=== PATIENT | male | born 1965 | race Two or more races ===

== ENCOUNTER 2018-11-18 19:29 | Emergency (ER) | payer SELFPAY ==
[~2018-11-18] VITALS: Ht 182.9 cm; Wt 83.9 kg
[2018-11-18 19:40] VITALS: BP 136/65
== END 2018-11-19 00:33 | disposition left against medical advice (07) ==
LOC: ER 19:33
DX: R10.9 Unspecified abdominal pain (principal); Z53.21 Procedure and treatment not carried out due to patient leaving prior to being seen by health care provider
CPT/HCPCS: 93005

== ENCOUNTER 2018-11-19 06:45 | Inpatient (IN) | payer SELFPAY ==
[~2018-11-19] VITALS: Ht 182.9 cm; Wt 78.8 kg
[2018-11-19] MEDS ORDERED: SODIUM CHLORIDE 0.9% 1,000 ML IVB ONE (07:40)
[2018-11-19] MEDS ORDERED: MORPHINE SULFATE 4 MG/ML SYR/VIAL IV ONE (07:45)
[2018-11-19] MEDS ORDERED: ONDANSETRON HCL 4 MG/2 ML VIAL IV ONE (07:45)
[2018-11-19 08:25] LABS: Alanine Aminotransferase 24 U/L (16-61); Albumin 3.6 g/dL (3.4-5.0); Anion Gap 9 (5-15); Aspartate Aminotransferase 28 U/L (15-37); BUN/Creatinine Ratio 16.5; Blood Urea Nitrogen 21 mg/dL (7-18); Calcium 8.4 mg/dL (8.5-10.1); Carbon Dioxide 23 mmol/L (21-32); Chloride 110 mmol/L (98-107); GFR African American 76 mL/min; GFR Non-African American 63 mL/min; Glucose 122 mg/dL (74-106); Magnesium 2.3 mg/dL (1.6-2.6); Potassium 3.5 mmol/L (3.5-5.1); Sodium 142 mmol/L (136-145)
[2018-11-19 08:34] LABS: Alkaline Phosphatase 88 U/L (45-117); Lipase 80 U/L (73-393)
[2018-11-19 08:36] LABS: Basophils # (auto) 0 uL; Basophils % (auto) 0.3 % (0.0-2.0); Eosinophils # (auto) 0 uL; Eosinophils % (auto) 0.4 % (0.0-7.0); Hematocrit 45.6 % (41.0-53.0); Hemoglobin 15.3 g/dL (13.5-17.5); Lymphocytes # (auto) 1.3 uL; Lymphocytes % (auto) 10.7 % (10.0-50.0); Mean Corpuscular Hemoglobin 30.2 pg (28.0-32.0); Mean Corpuscular Hgb Conc. 33.5 g/dL (32.0-36.0); Mean Corpuscular Volume 90.2 fL (80.0-100.0); Monocytes # (auto) 0.9 uL; Monocytes % (auto) 7.1 % (0.0-12.0); Neutrophils # (auto) 10.3 uL; Neutrophils % (auto) 81.5 % (37.0-80.0); Nucleated Red Blood Cells % 0.1 %; Platelet Count (auto) 295 10^3/uL (140-450); Red Blood Cells 5.05 10^6/uL (4.5-5.90); Red Cell Distribution Width 13.5 % (11.8-14.3); White Blood Cell 12.6 10^3/uL (4.4-10.8)
[2018-11-19] MEDS ORDERED: KETOROLAC TROMETH 15 mg/ml 1ML VL IV ONE (08:45)
[2018-11-19] MEDS ORDERED: ACETAMINOPHEN 500 MG TAB PO PRN (10:15)
[2018-11-19] MEDS ORDERED: ONDANSETRON HCL 4 MG/2 ML VIAL IV PRN (10:15)
[2018-11-19] MEDS ORDERED: POLYETHYLENE GLYCOL 17 GM PWDR PO ONE (10:15)
[2018-11-19] MEDS ORDERED: NITROGLYCERIN 0.4 MG SL TAB SL PRN (10:15)
[2018-11-19] MEDS ORDERED: HYDROcodone-ACET 5/325MG TAB PO PRN (10:15)
[2018-11-19] MEDS ORDERED: MORPHINE SULF INJ 2 MG/ML SYRINGE 1ML IV PRN ×2 (10:15)
[2018-11-19] MEDS: cefTRIAXone 1GM/50ML D5W 50 ML IV SCH (10:47)
[2018-11-19] MEDS: FOLIC ACID 1 MG, MULTIPLE VITAMIN 10 ML, MAGNESIUM SULF SDV 50% 8 MEQ, THIAMINE INJ 100... INJ SCH ×5 (11:16)
--- NOTE | 2018-11-19 11:40 | NUR ---
RECEIVED REPORT FROM ER, RN. AWAITING PT ARRIVAL.
[2018-11-19 12:13] VITALS: BP 125/76
--- NOTE | 2018-11-19 13:47 | NUR ---
ASSUMED CARE OF PATIENT Patient arrived to floor. Assumed care of patient, awake and alert. No S/S of distress/SOB. Pt denies any pain at this time. Instructed on POC and to call for assist PRN. Bed in lowest and locked position with side rails up x2 and call light within reach. Will continue to monitor for changes Q1hr and PRN. Addendum: 11/19/18 at 1351 by COLETTE YOO RN RN WRONG TIME. CORRECT TIME AT 1207
[2018-11-19 17:19] VITALS: BP 133/80
[2018-11-19] MEDS: TAMSULOSIN HYDROCHLORIDE 0.4 MG CAP PO SCH (18:05)
[2018-11-19 19:00] LABS: Urine Bacteria NONE SEEN /hpf (None Seen); Urine Blood TRACE /uL (Negative); Urine Mucus FEW (None Seen); Urine Specific Gravity 1.031 (1.001-1.035); Urine WBC 5 /hpf (0 - 3)
--- NOTE | 2018-11-19 19:30 | NUR ---
Opening Shift Note Assumed care of patient, awake and alert. No S/S of distress/SOB or pain. Insructed on POC and to callfor assist PRN, will continue to monitor for changes Q1hr and PRN. at bedside. Fall and safety precautions in place. Call light within reach.
[2018-11-19] MEDS: DOCUSATE SOD 100 MG CAP PO SCH (21:17)
[2018-11-19 23:19] VITALS: BP 136/61
[2018-11-20 05:28] VITALS: BP 131/63
--- NOTE | 2018-11-20 07:26 | NUR ---
Opening Shift Note Assumed care of patient, awake and alert. No S/S of distress/SOB. Pt denies any pain at this time. Instructed on POC and to call for assist PRN. Fall precaution measures in place. Bed in lowest and locked position with side rails upx2 and call light within reach. Will continue to monitor for changes Q1hr and PRN.
[2018-11-20 07:43] LABS: Basophils # (auto) 0 uL; Basophils % (auto) 0.3 % (0.0-2.0); Eosinophils # (auto) 0.1 uL; Hematocrit 43.2 % (41.0-53.0); Hemoglobin 14.7 g/dL (13.5-17.5); Lymphocytes # (auto) 1.9 uL; Lymphocytes % (auto) 18.9 % (10.0-50.0); Mean Corpuscular Hemoglobin 30.9 pg (28.0-32.0); Mean Corpuscular Volume 90.9 fL (80.0-100.0); Monocytes # (auto) 0.7 uL; Monocytes % (auto) 7.5 % (0.0-12.0); Neutrophils # (auto) 7.2 uL; Neutrophils % (auto) 72.3 % (37.0-80.0); Platelet Count (auto) 268 10^3/uL (140-450); Red Blood Cells 4.76 10^6/uL (4.5-5.90); Red Cell Distribution Width 13.3 % (11.8-14.3); White Blood Cell 9.9 10^3/uL (4.4-10.8)
[2018-11-20 08:03] LABS: Calcium 8.5 mg/dL (8.5-10.1); Potassium 3.6 mmol/L (3.5-5.1)
[2018-11-20 09:00] VITALS: BP 139/73
[2018-11-20] MEDS: DOCUSATE SOD 100 MG CAP PO SCH ×2 (09:44→21:10)
[2018-11-20] MEDS: cefTRIAXone 1GM/50ML D5W 50 ML IV SCH (09:44)
[2018-11-20] MEDS: FAMOTIDINE 20 MG TAB PO SCH (09:44)
[2018-11-20] MEDS: POLYETHYLENE GLYCOL 17 GM PWDR PO SCH (09:45)
[2018-11-20] MEDS: FOLIC ACID 1 MG, MULTIPLE VITAMIN 10 ML, MAGNESIUM SULF SDV 50% 8 MEQ, THIAMINE INJ 100... INJ SCH ×5 (12:49)
[2018-11-20 13:00] VITALS: BP 121/71
[2018-11-20 17:00] VITALS: BP 123/66
[2018-11-20] MEDS: TAMSULOSIN HYDROCHLORIDE 0.4 MG CAP PO SCH (18:25)
[2018-11-20 22:54] VITALS: BP 134/63
[2018-11-21 05:19] VITALS: BP 126/77
--- NOTE | 2018-11-21 07:35 | NUR ---
OPENING NOTE Assumed care of patient from NOC RNKaelyn. Patient resting in bed with eyes closed, even rise and fall of chest noted. No S/S of distress/SOB or pain. Bed in lowest, locked position with side rails up x2 and call light within reach . Will continue to monitor for changes Q1hr and PRN.
[2018-11-21 09:00] VITALS: BP 131/80
[2018-11-21] MEDS: DOCUSATE SOD 100 MG CAP PO SCH ×2 (09:48→21:31)
[2018-11-21] MEDS: cefTRIAXone 1GM/50ML D5W 50 ML IV SCH (09:48)
[2018-11-21] MEDS: POLYETHYLENE GLYCOL 17 GM PWDR PO SCH (09:49)
[2018-11-21] MEDS: FAMOTIDINE 20 MG TAB PO SCH (09:49)
--- NOTE | 2018-11-21 10:31 | NUR ---
OFF UNIT Patient ambulated off unit. AMA previously signed. No S/S of distress noted.
--- NOTE | 2018-11-21 10:55 | NUR ---
RETURN TO UNIT Patient returned to unit. No S/S of distress noted.
[2018-11-21] MEDS: FOLIC ACID 1 MG, MULTIPLE VITAMIN 10 ML, MAGNESIUM SULF SDV 50% 8 MEQ, THIAMINE INJ 100... INJ SCH ×5 (12:00)
[2018-11-21 13:00] VITALS: BP 132/75
--- NOTE | 2018-11-21 13:45 | NUR ---
OFF UNIT Patient ambulated off unit.
[2018-11-21 16:57] VITALS: BP 127/75
--- NOTE | 2018-11-21 17:13 | NUR ---
OFF UNIT Patient ambulated off unit
[2018-11-21] MEDS: TAMSULOSIN HYDROCHLORIDE 0.4 MG CAP PO SCH (18:18)
--- NOTE | 2018-11-21 19:22 | NUR ---
CLOSING NOTE Endorsed care of patient to NOC Kaelyn MORENO.
[2018-11-21 22:00] VITALS: BP 137/77
[2018-11-22 05:00] VITALS: BP 134/71
[2018-11-22 08:00] VITALS: BP 138/91
[2018-11-22] MEDS: cefTRIAXone 1GM/50ML D5W 50 ML IV SCH (09:26)
[2018-11-22] MEDS: DOCUSATE SOD 100 MG CAP PO SCH (09:27)
[2018-11-22] MEDS: POLYETHYLENE GLYCOL 17 GM PWDR PO SCH (09:27)
[2018-11-22] MEDS: FAMOTIDINE 20 MG TAB PO SCH (09:27)
[2018-11-22 10:54] LABS: BUN/Creatinine Ratio 15.2; Calcium 9.4 mg/dL (8.5-10.1); Potassium 4.2 mmol/L (3.5-5.1)
[2018-11-22 12:00] VITALS: BP 134/71
[2018-11-22] MEDS: FOLIC ACID 1 MG, MULTIPLE VITAMIN 10 ML, MAGNESIUM SULF SDV 50% 8 MEQ, THIAMINE INJ 100... INJ SCH ×5 (12:56)
[2018-11-22 13:54] VITALS: BP 134/71
--- NOTE | 2018-11-22 14:54 | NUR ---
DISCHARGE Discharge instructions given as ordered. Encouraged to establish and follow up with PMD as instructed. All questions and concerns addressed. Patient verbalized understanding. Medication reconciliation form completed and copy given to patient. IV removed with catheter intact and pressure dressing applied. Patient ambulated to vehicle with all personal belongings, accompanied by staff and family member. No distress noted at time of departure.
== END 2018-11-22 14:55 | disposition home or self-care (01) | DRG 694 ==
LOC: ER 06:45 → OVERFLOW 06:46 → EAST 12:09
PROVIDERS: ADMIT Internal Medicine; ATTEND Internal Medicine
DX: N13.2 Hydronephrosis with renal and ureteral calculous obstruction (principal); D72.829 Elevated white blood cell count, unspecified; F17.210 Nicotine dependence, cigarettes, uncomplicated; K57.90 Diverticulosis of intestine, part unspecified, without perforation or abscess without bleeding; K59.00 Constipation, unspecified; F10.10 Alcohol abuse, uncomplicated; Y90.9 Presence of alcohol in blood, level not specified
CPT/HCPCS: 36415; 71250; 74176; 80048; 80053; 81001; 83690; 83735; 84484; 85025; 87086; 93005; G0378; J0696; J2405

== ENCOUNTER 2020-06-10 21:01 | Emergency (ER) | payer MEDICAID, OTHER ==
[~2020-06-10] VITALS: Ht 182.9 cm; Wt 88.5 kg
[2020-06-10 22:30] LABS: Basophils # (auto) 0.1 10 ^3/uL (0-0.2); Eosinophils # (auto) 0.3 10 ^3/uL (0-0.8); Eosinophils % (auto) 4.7 % (0.0-7.0); Hematocrit 42.4 % (41.0-53.0); Hemoglobin 14.7 g/dL (13.5-17.5); Lymphocytes # (auto) 2.3 10 ^3/uL (0.4-5.4); Lymphocytes % (auto) 36.8 % (10.0-50.0); Mean Corpuscular Hemoglobin 31.5 pg (28.0-32.0); Mean Corpuscular Hgb Conc. 34.8 g/dL (32.0-36.0); Mean Corpuscular Volume 90.6 fL (80.0-100.0); Monocytes # (auto) 0.5 10 ^3/uL (0-1.3); Monocytes % (auto) 7.8 % (0.0-12.0); Neutrophils # (auto) 3.1 10 ^3/uL (1.6-8.6); Neutrophils % (auto) 49.7 % (37.0-80.0); Nucleated Red Blood Cells % 0.2 %; Platelet Count (auto) 309 10^3/uL (140-450); Red Blood Cells 4.67 10^6/uL (4.5-5.90); Red Cell Distribution Width 13.6 % (11.8-14.3); White Blood Cell 6.3 10^3/uL (4.4-10.8)
[2020-06-10 22:57] LABS: Albumin 3.4 g/dL (3.4-5.0); Anion Gap 3 (5-15); Blood Urea Nitrogen 26 mg/dL (7-18); Calcium 8.5 mg/dL (8.5-10.1); Carbon Dioxide 28 mmol/L (21-32); Chloride 110 mmol/L (98-107); Glucose 111 mg/dL (74-106); Magnesium 2.3 mg/dL (1.6-2.6); Potassium 3.6 mmol/L (3.5-5.1); Sodium 141 mmol/L (136-145)
[2020-06-10 23:04] LABS: Alanine Aminotransferase 39 U/L (16-61); Alkaline Phosphatase 85 U/L (45-117); Aspartate Aminotransferase 41 U/L (15-37); BUN/Creatinine Ratio 27.4; Bilirubin, Total 0.2 mg/dL (0.2-1.0); GFR African American 105 mL/min; GFR Non-African American 87 mL/min
[2020-06-10] MEDS ORDERED: IOHEXOL 300 MG/ML 100ML BOTTLE IJ ONE (23:08)
[2020-06-11 00:34] VITALS: BP 123/80
[2020-06-11] MEDS ORDERED: KETOROLAC TROMETH 30 MG/ML 1ML VIAL IV ONE (00:45)
== END 2020-06-11 01:22 | disposition home or self-care (01) ==
LOC: ER 21:01
DX: S20.219A Contusion of unspecified front wall of thorax, initial encounter (principal); V43.52XA Car driver injured in collision with other type car in traffic accident, initial encounter; Y93.89 Activity, other specified; Y92.488 Other paved roadways as the place of occurrence of the external cause; Y99.8 Other external cause status
CPT/HCPCS: 36415; 71260; 80053; 83735; 84484; 85025; 93005; 96374; 99285; J1885; Q9967

== ENCOUNTER 2020-07-27 19:31 | Emergency (ER) | payer OTHER ==
[~2020-07-27] VITALS: Ht 182.9 cm; Wt 86.2 kg
[2020-07-27] MEDS ORDERED: SODIUM CHLORIDE 0.9% 1,000 ML IVB ONE (19:45)
[2020-07-27] MEDS ORDERED: KETOROLAC TROMETH 30 MG/ML 1ML VIAL IV ONE (19:45)
[2020-07-27] MEDS ORDERED: ONDANSETRON HCL 4 MG/2 ML VIAL IV ONE (19:45)
[2020-07-27 20:24] LABS: White Blood Cell 8.8 10^3/uL (4.4-10.8)
[2020-07-27 20:27] LABS: Basophils # (auto) 0 10 ^3/uL (0-0.2); Basophils % (auto) 0.5 % (0.0-2.0); Eosinophils # (auto) 0.1 10 ^3/uL (0-0.8); Eosinophils % (auto) 0.7 % (0.0-7.0); Hemoglobin 17.4 g/dL (13.5-17.5); Lymphocytes # (auto) 1.4 10 ^3/uL (0.4-5.4); Lymphocytes % (auto) 15.9 % (10.0-50.0); Mean Corpuscular Hemoglobin 30.6 pg (28.0-32.0); Mean Corpuscular Volume 89.9 fL (80.0-100.0); Monocytes # (auto) 0.4 10 ^3/uL (0-1.3); Monocytes % (auto) 4.6 % (0.0-12.0); Neutrophils # (auto) 6.9 10 ^3/uL (1.6-8.6); Neutrophils % (auto) 78.3 % (37.0-80.0); Nucleated Red Blood Cells % 0.1 %; Red Blood Cells 5.67 10^6/uL (4.5-5.90); Red Cell Distribution Width 13.7 % (11.8-14.3)
[2020-07-27 20:33] LABS: Albumin 3.9 g/dL (3.4-5.0); Calcium 9.3 mg/dL (8.5-10.1); Potassium 3.9 mmol/L (3.5-5.1)
[2020-07-27 20:36] LABS: BUN/Creatinine Ratio 25.9
[2020-07-27 20:38] LABS: Bilirubin, Total 0.6 mg/dL (0.2-1.0); Total Protein 7.9 g/dL (6.4-8.2)
[2020-07-27 21:00] VITALS: BP 132/85
== END 2020-07-27 21:33 | disposition home or self-care (01) ==
LOC: ER 19:34
DX: K52.9 Noninfective gastroenteritis and colitis, unspecified (principal); F17.210 Nicotine dependence, cigarettes, uncomplicated
CPT/HCPCS: 36415; 74176; 80053; 83690; 84484; 85025; 93005; 96374; 96375; 99285; J1885; J2405; J7030

== ENCOUNTER 2020-08-01 22:31 | Emergency (ER) | payer OTHER ==
[~2020-08-01] VITALS: Ht 182.9 cm; Wt 86.2 kg
[2020-08-01 22:37] VITALS: BP 148/83
== END 2020-08-02 03:09 | disposition left against medical advice (07) ==
LOC: ER 22:31
DX: M25.522 Pain in left elbow (principal); Z53.21 Procedure and treatment not carried out due to patient leaving prior to being seen by health care provider

== ENCOUNTER 2020-08-04 05:02 | Emergency (ER) | payer OTHER ==
[~2020-08-04] VITALS: Ht 182.9 cm; Wt 83.9 kg
[2020-08-04 06:41] VITALS: BP 145/85
== END 2020-08-04 07:30 | disposition home or self-care (01) ==
LOC: ER 05:02
DX: M70.22 Olecranon bursitis, left elbow (principal); Y93.89 Activity, other specified; F17.210 Nicotine dependence, cigarettes, uncomplicated
CPT/HCPCS: 73080

== ENCOUNTER 2020-08-11 18:57 | Emergency (ER) | payer OTHER ==
[~2020-08-11] VITALS: Ht 182.9 cm; Wt 86.2 kg
[2020-08-11 19:03] VITALS: BP 138/85
[2020-08-11 19:55] LABS: Basophils # (auto) 0 10 ^3/uL (0-0.2); Basophils % (auto) 0.2 % (0.0-2.0); Eosinophils # (auto) 0.2 10 ^3/uL (0-0.8); Eosinophils % (auto) 2.1 % (0.0-7.0); Hematocrit 45.7 % (41.0-53.0); Hemoglobin 15.6 g/dL (13.5-17.5); Lymphocytes # (auto) 1.1 10 ^3/uL (0.4-5.4); Lymphocytes % (auto) 12.8 % (10.0-50.0); Mean Corpuscular Hemoglobin 30.8 pg (28.0-32.0); Mean Corpuscular Hgb Conc. 34.2 g/dL (32.0-36.0); Monocytes # (auto) 0.5 10 ^3/uL (0-1.3); Monocytes % (auto) 5.5 % (0.0-12.0); Neutrophils # (auto) 6.7 10 ^3/uL (1.6-8.6); Neutrophils % (auto) 79.4 % (37.0-80.0); Nucleated Red Blood Cells % 0.2 %; Platelet Count (auto) 292 10^3/uL (140-450); Red Blood Cells 5.08 10^6/uL (4.5-5.90); Red Cell Distribution Width 13.6 % (11.8-14.3); White Blood Cell 8.4 10^3/uL (4.4-10.8)
[2020-08-11 20:18] LABS: Albumin 3.5 g/dL (3.4-5.0); Anion Gap 8 (5-15); Blood Urea Nitrogen 19 mg/dL (7-18); Calcium 8.4 mg/dL (8.5-10.1); Carbon Dioxide 24 mmol/L (21-32); Chloride 105 mmol/L (98-107); Glucose 100 mg/dL (74-106); Potassium 3.7 mmol/L (3.5-5.1); Sodium 137 mmol/L (136-145)
[2020-08-11 20:20] LABS: Alanine Aminotransferase 27 U/L (16-61); Aspartate Aminotransferase 26 U/L (15-37); BUN/Creatinine Ratio 23.2; GFR African American 125 mL/min; GFR Non-African American 103 mL/min
[2020-08-11 20:25] LABS: Alkaline Phosphatase 98 U/L (45-117); Bilirubin, Total 0.6 mg/dL (0.2-1.0)
== END 2020-08-12 03:19 | disposition left against medical advice (07) ==
LOC: EDBD 18:57 → ER 19:02
DX: R10.9 Unspecified abdominal pain (principal); Z53.21 Procedure and treatment not carried out due to patient leaving prior to being seen by health care provider
CPT/HCPCS: 36415; 80053; 84484; 85025; 93005

== ENCOUNTER 2021-03-20 17:43 | Emergency (ER) | payer OTHER ==
[~2021-03-20] VITALS: Ht 185.4 cm; Wt 86.2 kg
[2021-03-20 22:59] VITALS: BP 125/77
== END 2021-03-20 23:12 | disposition home or self-care (01) ==
LOC: ER 17:43
DX: S13.4XXA Sprain of ligaments of cervical spine, initial encounter (principal); S00.01XA Abrasion of scalp, initial encounter; F17.210 Nicotine dependence, cigarettes, uncomplicated; Z87.442 Personal history of urinary calculi; V43.52XA Car driver injured in collision with other type car in traffic accident, initial encounter; Y93.89 Activity, other specified; Y92.89 Other specified places as the place of occurrence of the external cause; Y99.8 Other external cause status
CPT/HCPCS: 70450; 72125